=== PATIENT | female | born 1950 | race Caucasian/White ===

== ENCOUNTER 2018-01-30 11:25 | Emergency (ER) | payer BC ==
[~2018-01-30] VITALS: Ht 167.6 cm; Wt 128.5 kg
[~2018-01-30 11:25] MED LIST: BROM0.07 OPR; CHOL100010 PO; HYDR25TA4 PO; INSDGIPEN SC; MULT-506 PO; NVLGI SC; OMEG10007 PO; PRED1SUS3 OPR; RAMI10CA PO
[2018-01-30 11:31] VITALS: TEMP 36.7; Ht 167.6 cm; Wt 128.5 kg
[2018-01-30] MEDS ORDERED: ASPIRIN 81 MG CHEW PO STA (11:45)
[2018-01-30] MEDS ORDERED: NITROGLYCERIN 2% OINTMENT 30GM TUBE EXT ONE (11:45)
[2018-01-30 11:55] VITALS: O2SAT 96
[2018-01-30 12:13] LABS: HEMATOCRIT 43.8 % (37-47); HEMOGLOBIN 15.3 g/dL (12.0-16.0); MEAN CELL VOLUME 87.6 fL (80-100); MEAN CORPUSCULAR HEMOGLOBIN 30.6 pg (25-34); MEAN CORPUSCULAR HGB CONC 34.9 g/dl (32-36); MEAN PLATELET VOLUME 10.5 fL (7.4-10.4); PLATELET COUNT 153 K/uL (130-400); RED CELL DISTRIBUTION WIDTH CV 13.6 % (11.5-14.5); RED CELL DISTRIBUTION WIDTH SD 43.7 fL (36.4-46.3); WHITE BLOOD COUNT 8.34 K/uL (4.8-10.8)
--- NOTE | 2018-01-30 12:15 | DIAGNOSTIC IMAGING REPORT ---
CHEST ONE VIEW PORTABLE CLINICAL HISTORY: CHEST PAIN dyspnea COMPARISON STUDY: No previous studies for comparison. FINDINGS: The bones soft tissues and hemidiaphragms are normal. The cardiomediastinal silhouette is normal. The lungs are clear. The pulmonary vasculature is normal. IMPRESSION: Negative chest. The above report was generated using voice recognition software. It may contain grammatical, syntax or spelling errors. Electronically signed by: Bridger Moulton M.D. 01/30/2018 12:13 PM Dictated Date/Time: 01/30/2018 12:13 PM
[2018-01-30] MEDS ORDERED: NVLGIPEN SC (12:20)
[2018-01-30] MEDS ORDERED: ROSU5TAB PO (12:20)
[2018-01-30] MEDS ORDERED: NVLGI/PEN SC (12:20)
[2018-01-30] MEDS ORDERED: INSU100I23 SC (12:20)
[2018-01-30] MEDS ORDERED: ASPI81TA28 PO (12:21)
[2018-01-30 12:22] LABS: PTT PATIENT 25.3 SECONDS (21.0-31.0)
--- NOTE | 2018-01-30 12:25 | EMERGENCY ROOM VISIT NOTE ---
History Report prepared by Kelly: Lakhwinder Anderson Under the Supervision of: Dr. Hardy Garcia M.D. First contact with patient: 11:38 Chief Complaint: CHEST PAIN Stated Complaint: CHEST PAIN,LEFT ARM NUMBNESS History of Present Illness The patient is a 67 year old female who presents to the Emergency Room with complaints of constant sharp chest pain beginning this morning. She currently rates her discomfort a 4/10 in severity. The patient states her symptoms radiate up her neck and into her left jaw and left arm. She reports it feels like her left arm is numb. The patient notes she is also nauseous, lightheaded, and dizzy. She states she has a history of diabetes. She notes her symptoms started two weeks ago when her chest felt like it was fluttering. The patient states, 2 weeks ago, the fluttering lasted for about 20-30 minutes. She reports she went to sleep and developed a strange feeling in her arms the next morning. The patient notes she was evaluated by a decontamination technician 5 months ago and had a stress test completed. She states she takes medication for high cholesterol and high blood pressure. The patient reports she smokes a pack of cigarettes a day. She denies issues with her heart, feeling these symptoms before, worsening discomfort with exertion, shortness of breath, sweating, recent illness, long trips by car, plane, or train, and a history or family history of blood clots in the legs or lungs. Source of History: patient Onset: this morning Position: chest Symptom Intensity: 4/10 Quality: sharp Timing: constant Associated Symptoms: + neck pain, + nausea, + numbness (left arm), No SOB Note: Associated symptoms: left jaw pain, lightheaded, dizzy, low blood sugar Denies: sweating Review of Systems See HPI for pertinent positives & negatives. A total of 10 systems reviewed and were otherwise negative. Past Medical & Surgical Medical Problems: (1) Diabetes (2) High cholesterol (3) HTN (hypertension) Family History Patient reports no known family medical history. Pt denies family history of blood clots in the legs or lungs. Social History Smoking Status: Current Every Day Smoker Marital Status: Housing Status: lives with significant other Occupation Status: unemployed Current/Historical Medications Scheduled Aspirin (Aspirin Ec), 81 MG PO DAILY Cholecalciferol (Vitamin D), 2,000 UNITS PO QAM Fish Oil ([place]-3), 1 CAP PO QAM Hydrochlorothiazide (Hctz), 25 MG PO QAM Insulin Aspart (Novolog Flexpen), 10 UNITS SC QAM Insulin Aspart (Novolog Flexpen), 16 UNITS SC QPM Insulin Glargine (Basaglar Kwikpen), 60 UNITS SC QPM Multivitamin (Multivitamin), 1 TAB PO QAM Ramipril (Ramipril), 10 MG PO HS Rosuvastatin Calcium (Crestor), 5 MG PO 2XWK Allergies Coded Allergies: Codeine (Verified Allergy, Unknown, RASH, 09/15/16) Metformin (Verified Allergy, Unknown, JAUNDICE, 09/15/16) Nickel (Verified Allergy, Unknown, RASH, 09/15/16) Adhesives (Verified Adverse Reaction, Unknown, SKIN REDNESS, 09/15/16) Physical Exam Vital Signs Date Time Temp Pulse Resp B/P (MAP) Pulse Ox O2 Delivery O2 Flow Rate FiO2 01/30/18 15:31 68 18 143/56 98 Room Air 01/30/18 14:43 70 18 150/79 95 Room Air 01/30/18 13:43 75 14 172/59 98 Room Air 01/30/18 13:04 73 14 172/59 98 Room Air 01/30/18 12:32 75 14 181/79 99 Room Air 01/30/18 12:01 76 01/30/18 11:59 96 Room Air 01/30/18 11:55 96 Room Air 01/30/18 11:53 78 16 172/55 96 Room Air 01/30/18 11:31 36.7 87 20 171/85 95 Room Air Physical Exam GENERAL: Patient is in no acute distress. HEENT: No acute trauma, normocephalic atraumatic, mucous membranes moist, no nasal congestion, no scleral icterus. NECK: No stridor, no adenopathy, no meningismus, trachea is midline. LUNGS: Clear to auscultation bilaterally, no wheeze, no rhonchi, breath sounds equal. HEART: Without murmurs gallops or rubs, regular rate and rhythm. CHEST: Tenderness to palpation to the left anterior chest wall. ABDOMEN: Soft, nontender, bowel sounds positive, no hernias, no peritonitis. EXTREMITIES: No cyanosis. Moderate bilateral pedal edema, full range of motion of all the joints without pain or difficulty, no signs for acute trauma. NEUROLOGIC: Oriented x 3, no acute motor or sensory deficits, no focal weakness. No pronator drift or cerebellar dysfunction. No facial droop or speech slur. SKIN: No rash, no jaundice, no diaphoresis. Medical Decision & Procedures ER Provider Diagnostic Interpretation: Radiology results as stated below per my review and radiologist interpretation: CHEST ONE VIEW PORTABLE CLINICAL HISTORY: CHEST PAIN dyspnea COMPARISON STUDY: No previous studies for comparison. FINDINGS: The bones soft tissues and hemidiaphragms are normal. The cardiomediastinal silhouette is normal. The lungs are clear. The pulmonary vasculature is normal. IMPRESSION: Negative chest. The above report was generated using voice recognition software. It may contain grammatical, syntax or spelling errors. Electronically signed by: Bridger Moulton M.D. 01/30/2018 12:13 PM Dictated Date/Time: 01/30/2018 12:13 PM (CHEST FOR PE) ANGIO WITH CT DOSE: 650.11 mGy.cm HISTORY: Chest pain dyspnea TECHNIQUE: Multiaxial CT images of the chest were performed following the intravenous administration of contrast to evaluate the pulmonary arteries. Maximal intensity projection images were also obtained. A dose lowering technique was utilized adhering to the principles of ALARA. COMPARISON STUDY: None. FINDINGS: There is a normal caliber thoracic aorta with no evidence for dissection. There is no evidence for pulmonary embolus. No pleural effusions. No pneumothorax. The liver and spleen are unremarkable. No mediastinal or hilar lymphadenopathy. The central airways are patent. The lungs are clear. IMPRESSION: No evidence for pulmonary embolus. The above report was generated using voice recognition software. It may contain grammatical, syntax or spelling errors. Electronically signed by: Bridger Moulton M.D. 01/30/2018 2:39 PM Dictated Date/Time: 01/30/2018 2:37 PM Laboratory Results 01/30/18 11:58 01/30/18 11:58 Test 01/30/18 11:58 01/30/18 12:17 Red Blood Count 5.00 M/uL (4.2-5.4) Mean Corpuscular Volume 87.6 fL (80-100) Mean Corpuscular Hemoglobin 30.6 pg (25-34) Mean Corpuscular Hemoglobin Concent 34.9 g/dl (32-36) RDW Standard Deviation 43.7 fL (36.4-46.3) RDW Coefficient of Variation 13.6 % (11.5-14.5) Mean Platelet Volume 10.5 fL (7.4-10.4) Prothrombin Time 10.2 SECONDS (9.0-12.0) Prothromb Time International Ratio 1.0 (0.9-1.1) Activated Partial Thromboplast Time 25.3 SECONDS (21.0-31.0) Partial Thromboplastin Ratio 1.0 Anion Gap 0.0 mmol/L (3-11) Est Creatinine Clear Calc Drug Dose 87.3 ml/min Estimated GFR () 80.5 Estimated GFR (Non- 69.4 BUN/Creatinine Ratio 28.5 (10-20) Calcium Level 8.9 mg/dl (8.5-10.1) Magnesium Level 2.1 mg/dl (1.8-2.4) Total Bilirubin 0.4 mg/dl (0.2-1) Aspartate Amino Transf (AST/SGOT) 21 U/L (15-37) Alanine Aminotransferase (ALT/SGPT) 27 U/L (12-78) Alkaline Phosphatase 66 U/L (45-117) Troponin I < 0.015 ng/ml (0-0.045) Total Protein 7.4 gm/dl (6.4-8.2) Albumin 4.0 gm/dl (3.4-5.0) Globulin 3.4 gm/dl (2.5-4.0) Albumin/Globulin Ratio 1.2 (0.9-2) Thyroid Stimulating Hormone (TSH) 1.440 uIu/ml (0.300-4.500) Chemistry Specimen Hemolysis Bedside D-Dimer > 450 ng/mlFEU (0-450) Laboratory results reviewed by me. Medications Administered Medications (Trade) Dose Ordered Sig/Álvaro Route Start Time Stop Time Status Last Admin Dose Admin Nitroglycerin (Nitroglycerin 2% Oint) 1 inch NOW ONCE EXT 01/30/18 11:45 01/30/18 11:48 DC 01/30/18 12:08 1 INCH Aspirin (Aspirin Chew) 324 mg NOW STAT PO 01/30/18 11:45 01/30/18 11:48 DC 01/30/18 11:56 324 MG ECG Per My Interpretation Indication: chest pain Rate (beats per minute): 82 Rhythm: normal sinus Findings: no ectopy, other (No ST elevation. No PVC.) ED Course 1141: The patient was evaluated in room C04. A complete history and physical exam was performed. 1145: Ordered Aspirin 324mg PO, Nitroglycerin 1 in EXT 1248: I reevaluated the patient and discussed her current exam findings. She is still having discomfort. 1351: I reevaluated the patient and discussed her need for a CT scan. 1445: I reevaluated the patient and updated her of her new test results. She notes there still has not been relief with the nitroglycerin patch. 1447: Paged the patient's decontamination technician, Dr. Fernández. 1505: Dr. Fernández is unreachable. The [facility] Hospitalist has been paged. 1515: I updated the patient on the status of the consult. I updated them about her current test results. 1522: I discussed the patient's case with Dr. Au, [facility] Aws Developer. He states the patient should follow-up as an outpatient. 1524: Reevaluated the patient. Discussed results and discharge instructions: she verbalized understanding and agreement. The patient is ready for discharge. Medical Decision The patient is a 67 year old female who presents to the ED with complaints of chest pain. Differential diagnoses considered include ME, PE, aortic dissection , musculoskeletal pain, stroke, electrolyte imbalance, anemia, pneumothorax, heart failure. There is no leukocytosis or concerning anemia. No significant electrolyte abnormality, kidney failure or hepatitis. No coagulopathy. Chest film does not show mediastinal widening, pneumonia or pneumothorax. EKG shows a sinus rhythm, no acute ischemia. Cardiac enzyme testing 1 is not consistent with acute cardiac injury. D-dimer was elevated. Chest CT does not show any evidence for PE or for aortic dissection. No pneumonia. Patient was given oral aspirin and Nitropaste. The nitroglycerin did not help her pain. She remains with some left-sided chest pain and shoulder pain which seems reproducible. I spoke with [facility] cardiology, outpatient follow-up was suggested. The patient will see her family doctor or decontamination technician this week. She can use some Tylenol for pain. She will keep on her other medications as before. If she has any exertional symptoms or worsening symptoms, she can return for reassessment. Medication Reconcilliation Current Medication List: was personally reviewed by me Blood Pressure Screening Patient's blood pressure: Elevated blood pressure Blood pressure disposition: Referred to PCP Consults Time Called: 1505 Consulting Physician: Frank Funes Aws Developer Returned Call: 1522 I discussed the patient's case with Frank Funes Aws Developer. He states the patient should follow-up as an outpatient. Impression Primary Impression: Left sided chest pain Scribe Attestation The scribe's documentation has been prepared under my direction and personally reviewed by me in its entirety. I confirm that the note above accurately reflects all work, treatment, procedures, and medical decision making performed by me. Departure Information Dispostion Home / Self-Care Referrals Jona Martinez M.D. (PCP) Forms Call Back Authorization, HOME CARE DOCUMENTATION FORM, IMPORTANT VISIT INFORMATION Patient Instructions My [facility] [place] Additional Instructions heat to the chest wall may help tylenol for pain return for any exertional symptoms--pain with exertion or increasing shortness of breath see cardiology or fam md this week for a follow up return if worsening heart and lung testing today was all ok
[2018-01-30 13:00] LABS: ALT/SGPT 27 U/L (12-78); AST/SGOT 21 U/L (15-37); BLOOD UREA NITROGEN 25 mg/dl (7-18); CALCIUM 8.9 mg/dl (8.5-10.1); CARBON DIOXIDE 29 mmol/L (21-32); CREATININE 0.87 mg/dl (0.60-1.20); GLUCOSE 160 mg/dl (70-99); POTASSIUM 4.5 mmol/L (3.5-5.1); SODIUM 138 mmol/L (136-145)
[2018-01-30 13:25] LABS: ALKALINE PHOSPHATASE 66 U/L (45-117); TOTAL PROTEIN 7.4 gm/dl (6.4-8.2)
[2018-01-30] MEDS ORDERED: OPTIRAY 320 IV PRN (14:30)
--- NOTE | 2018-01-30 14:40 | DIAGNOSTIC IMAGING REPORT ---
(CHEST FOR PE) ANGIO WITH CT DOSE: 650.11 mGy.cm HISTORY: Chest pain dyspnea TECHNIQUE: Multiaxial CT images of the chest were performed following the intravenous administration of contrast to evaluate the pulmonary arteries. Maximal intensity projection images were also obtained. A dose lowering technique was utilized adhering to the principles of ALARA. COMPARISON STUDY: None. FINDINGS: There is a normal caliber thoracic aorta with no evidence for dissection. There is no evidence for pulmonary embolus. No pleural effusions. No pneumothorax. The liver and spleen are unremarkable. No mediastinal or hilar lymphadenopathy. The central airways are patent. The lungs are clear. IMPRESSION: No evidence for pulmonary embolus. The above report was generated using voice recognition software. It may contain grammatical, syntax or spelling errors. Electronically signed by: Bridger Moulton M.D. 01/30/2018 2:39 PM Dictated Date/Time: 01/30/2018 2:37 PM
[2018-01-30 15:31] VITALS: BP 143/56; PULSE 68; O2SAT 98
== END 2018-01-30 15:33 | disposition home or self-care (01) ==
LOC: C.EDB 11:27 → C.EDC 15:33
DX: R07.9 Chest pain, unspecified (principal); E11.9 Type 2 diabetes mellitus without complications; F17.210 Nicotine dependence, cigarettes, uncomplicated; I10 Essential (primary) hypertension; E78.00 Pure hypercholesterolemia, unspecified; Z79.4 Long term (current) use of insulin; Z79.82 Long term (current) use of aspirin; Z79.899 Other long term (current) drug therapy; Z88.5 Allergy status to narcotic agent; Z88.8 Allergy status to other drugs, medicaments and biological substances; Z91.09 Other allergy status, other than to drugs and biological substances

== ENCOUNTER 2019-01-21 16:44 | Inpatient (IN) ==
[2019-01-21] MEDS ORDERED: VANCOMYCIN HCL 2,750 MG in SODIUM CHLORIDE 0.9% 500 ML IV ONE (18:13)
[2019-01-21] MEDS ORDERED: PIPERACILLIN/TAZOBACTAM 4.5 GM/120 ML BAG IV ONE (18:13)
[2019-01-21] MEDS ORDERED: PIPERACILL/TAZOBAC CONSULT ACTIVE PRN (18:13)
[2019-01-21] MEDS ORDERED: VANCOMYCIN CONSULT ACTIVE PRN (18:13)
--- NOTE | 2019-01-21 18:42 | XRay Report ---
XR chest 1V portable CLINICAL HISTORY: Sepsis COMPARISON STUDY: 01/30/2018 FINDINGS: The heart is the upper limits of normal in size. There is no failure. There is no focal pul monary consolidation. There are no pleural effusions. Slight prominence the basilar markings is felt to be secondary to a prominent fat pad and minor atelectatic change[ IMPRESSION: No active disease in the chest. Electronically signed by: Fabrizio Kaufman M.D. 01/21/2019 6:40 PM
--- NOTE | 2019-01-21 18:44 | XRay Report ---
XR foot RT min 3V routine CLINICAL HISTORY: Suspected osteomyelitis. Discoloration of the second and third toes. COMPARISON: None. DISCUSSION: No fractures are visualized. The bones are osteopenic. There are prominent calcaneal spur s. There are degenerative changes most pronounced the level the first metatarsal phalangeal joint. Th ere is no conventional radiographic evidence of osteomyelitis. IMPRESSION: 1. No acute fractures identified 2. No conventional radiographic evidence of acute osteomyelitis Electronically signed by: Fabrizio Kaufman M.D. 01/21/2019 6:43 PM
[2019-01-21 19:26] LABS: Basophils # (auto) 0.03 K/uL (0-0.2); Basophils % (auto) 0.4 %; Eosinophils # (auto) 0.12 K/uL (0-0.5); Eosinophils % (auto) 1.5 %; Hematocrit (blood only) 43.9 % (37-47); Hemoglobin 15.6 g/dL (12.0-16.0); Immature Granulocytes # (auto) 0.02 K/uL (0.00-0.02); Immature Granulocytes % (auto) 0.2 %; Lymphocytes # (auto) 2.81 K/uL (1.2-3.4); Lymphocytes % (auto) 34.1 %; Mean Corpuscular Hgb Conc 35.5 g/dL (32-36); Mean Corpuscular Volume 87.5 fL (80-100); Monocytes # (auto) 0.81 K/uL (0.11-0.59); Monocytes % (auto) 9.8 %; Neutrophils # (auto) 4.44 K/uL (1.4-6.5); Platelet Count 148 K/uL (130-400); RDW Coefficient of Variation 13.4 % (11.5-14.5); RDW Standard Deviation 42.8 fL (36.4-46.3); Red Blood Count 5.02 M/uL (4.2-5.4); White Blood Count 8.23 K/uL (4.8-10.8)
[2019-01-21 19:44] LABS: BUN Creatinine Ratio 25.7 (10-20); Calcium 9.4 mg/dl (8.5-10.1); Creatinine Clr Calc Pharmacy 92.9 ml/min; Est GFR (African American) 87.1; Est GFR (Non-African American) 75.2; Potassium 3.9 mmol/L (3.5-5.1)
[2019-01-21 19:46] LABS: Partial Thromboplastin Time 26.2 Seconds (21.0-31.0); Prothrombin Time 10.3 Seconds (9.0-12.0)
[2019-01-21 19:47] LABS: Albumin Globulin Ratio 1.2 (0.9-2); Bilirubin,Total 0.7 mg/dl (0.2-1); Globulin 3.4 gm/dl (2.5-4.0); Total Protein 7.4 gm/dl (6.4-8.2)
[2019-01-21 20:39] LABS: Magnesium 2.2 mg/dl (1.8-2.4)
[2019-01-21] MEDS ORDERED: LISINOPRIL 5 MG TAB PO STA (21:04)
--- NOTE | 2019-01-21 22:16 | History & Physical Report ---
Date of Service January 21, 2019 Assessment & Plan (1) Cellulitis of toe of right foot: This is a 68-year-old female with a PMH of DM II, tobacco use disorder, HTN, HLD and other medical problems listed below who presents with toe discoloration and pain starting yesterday and was found to have toe cellulitis with concern for developing osteomyelitis. 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 Gomez. Please see addendum for further plan details. History of Present Illness Chief Complaint: Right toe pain Primary Care Provider: Jona Martinez MD This is a 68-year-old female with a PMH of DM II, tobacco use disorder, HTN, HLD and other medical problems listed below who presents with R toe discoloration and pain starting yesterday. Patient spent yesterday cleaning her home and noticed some purple discoloration at the top portion of her toe right 2nd toe. By the end of the day, purple color had spread to the base of her toe and she noted blisters forming on the top and bottom of the toe. Ambulation is painful. Went to acute care in [place] today and had x-ray performed. Was called later after radiologist read x-ray as possible developing osteomyelitis. Was directed to come to ED for further evaluation and antibiotic treatment. Patient denies any history of foot wounds. No fever, chills, lightheadedness, headache, chest pain, shortness of breath, nausea, vomiting, abdominal pain, dysuria, diarrhea or constipation. Has chronic lymphedema. Follows with endocrinology closely for diabetes with most recent A1c of 7.2 last week. Current tobacco user, 1 ppd x 45 years. Allergies Allergy/AdvReac Type Severity Reaction Status Date / Time metformin Allergy Severe JAUNDICE Verified 01/21/19 19:13 codeine Allergy Mild RASH Verified 01/21/19 19:13 nickel Allergy Mild RASH Verified 01/21/19 19:13 adhesive AdvReac Mild SKIN Verified 01/21/19 19:13 REDNESS Home Medications Home Medications Medication Instructions Recorded Confirmed Type aspirin [Aspir-81] 81 mg PO DAILY 01/21/19 01/21/19 History cholecalciferol (vitamin D3) 2,000 unit PO MOWEFR 01/21/19 01/21/19 History [Vitamin D3] hydrochlorothiazide 12.5 mg PO DAILY 01/21/19 01/21/19 History insulin aspart U-100 [Novolog 12 unit SUBCUT BID 01/21/19 01/21/19 History U-100 Insulin aspart] insulin aspart U-100 [Novolog 16 unit SUBCUT QDD 01/21/19 01/21/19 History U-100 Insulin aspart] insulin glargine [Basaglar KwikPen 60 unit SUBCUT QDD 01/21/19 01/21/19 History U-100 Insulin] multivitamin 1 tab PO DAILY 01/21/19 01/21/19 History omega 4-aom-jiv-fish oil [Fish Oil] 1 cap PO DAILY 01/21/19 01/21/19 History ramipril 10 mg PO BID 01/21/19 01/21/19 History rosuvastatin [Crestor] 5 mg PO MOTH 01/21/19 01/21/19 History Past Med/Surg History Surgical History History of appendectomy (Resolved) History of tooth extraction (Resolved) Social History Preferred Language: Polish Communication Ability: Effective 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 Physical Exam Physical Exam: General Appearance: WD/WN, no apparent distress, obese Head: normocephalic, atraumatic Eyes: normal inspection, PERRL, EOMI ENT: hearing grossly normal, pharynx normal (moist mucous membranes) Neck: supple, no JVD, no adenopathy Respiratory/Chest: lungs clear to auscultation. No wheezes, rales or rhonci. No respiratory distress or accessory muscle use Cardiovascular: regular rate, rhythm, no murmur, normal peripheral pulses Abdomen/GI: normal bowel sounds, soft, non-tender to palpation Extremities/Musculoskelatal: Right 2nd phalynx with purple discoloration and blistering on dorsal and plantar surfaces. Warm to touch, no drainage. PT/DP pulses 2+. Non-pitting edema bilaterally to knees. Neurologic/Psych: alert, normal mood/affect, oriented x 3 Skin: normal color, warm/dry Results & Data Vital Signs (Past 12 Hours) Vital Signs Temp Pulse Resp BP Pulse Ox 01/21/19 16:50 36.5 C 88 18 206/87 H 97 Laboratory Results Short CBC 01/21/19 Range/Units 19:12 WBC 8.23 (4.8-10.8) K/uL Hgb 15.6 (12.0-16.0) g/dL Hct 43.9 (37-47) % Plt Count 148 (130-400) K/uL BMP 01/21/19 19:12 Sodium 136 Potassium 3.9 Chloride 105 Carbon Dioxide 29 BUN 21 H Creatinine 0.81 Glucose 167 H Calcium 9.4 Liver Function 01/21/19 Range/Units 19:12 Total Bilirubin 0.7 (0.2-1) mg/dl AST 16 (15-37) U/L ALT 27 (12-78) U/L Alkaline Phosphatase 54 (45-117) U/L Albumin 4.0 (3.4-5.0) gm/dl Diagnostic Findings CXR: IMPRESSION: No active disease in the chest. Foot XR: IMPRESSION: 1. No acute fractures identified 2. No conventional radiographic evidence of acute osteomyelitis Supervising Physician Co-Signing Physician Notes IM ATTENDING : Patient seen and examined. History obtained from patient and records. Preceding documentation by Ms. Gwendolyn Maloney PA-C reviewed. In addition, official report of outpatient plain right foot x-ray read as follows : Right great toe digital phalangeal tuft osteomyelitis Calcaneal enthesophytes FINAL ASSESSMENT AND PLAN as follows : Right second toe cellulitis Sudden onset no sepsis Rule out PAD given claudication symptoms and smoking history Possible focal osteomyelitis on outpatient R foot x-ray Right great toe symptomatically and clinically well. Hypertension, elevated secondary to pain, missed home meds DM 2, insulin requiring, reasonable control as of recent outpatient globin A1c of 7.06 January 2019 Ongoing tobacco abuse GMF CS, Doxycycline for now Local measures for toe cellulitis MRI foot RE abnormal right foot x-ray ABIs RE claudication rule out PAD Analgesia, facilitate patient's AGUILA inhibitor, may need titration Further management pending work-up results Basal insulin, ISS BG goal 140-180, carb count coverage Nicotine patch PRN. DVT prophylaxis. Lovenox subcu Full code
[2019-01-21] MEDS ORDERED: CARBOHYDRATES FOR HYPOGLYCEMIA PO PRN (23:02)
[2019-01-21] MEDS ORDERED: ACETAMINOPHEN 325 MG TAB PO PRN (23:02)
[2019-01-21] MEDS ORDERED: DEXTROSE 50% 50 ML SYRINGE IV PRN (23:02)
[2019-01-21] MEDS ORDERED: GLUCOSE 40% GEL 15 GM TUBE PO PRN (23:02)
[2019-01-21] MEDS ORDERED: GLUCOSE 10 TABS/TUBE PO PRN (23:02)
[2019-01-21] MEDS ORDERED: GLUCAGON FOR INJ 1 MG VIAL SQ PRN (23:02)
[2019-01-21] MEDS ORDERED: PROMETHAZINE HCL 12.5 MG in SODIUM CHLORIDE 0.9% 50 ML IV PRN (23:03)
[2019-01-21] MEDS ORDERED: TRAMADOL HCL 50 MG TABLET PO PRN (23:03)
[2019-01-21] MEDS ORDERED: LISINOPRIL 10 MG TAB PO STA (23:06)
[2019-01-21] MEDS ORDERED: NSS + 20MEQ KCL 20 MEQ/1,000 ML BAG IV ONE (23:59)
[2019-01-22] MEDS ORDERED: DOXYCYCLINE HYCLATE 100 MG in DEXTROSE 5% 100 ML IV STA (00:22)
--- NOTE | 2019-01-22 00:27 | Emergency Department Note ---
Entered by Alyssa Shields acting as a scribe for Jimmy Ordoñez MD History of Present Illness General Chief complaint: Toe Injury/Pain Stated complaint: RT TOE BONE INFECTED Time Seen by Provider: 01/21/19 18:06 Source: patient History of Present Illness Onset (ago): day(s) 1 Location: foot (right foot, second toe) Pain Consistency: + constant Maximum Pain Intensity: 3 Quality: + other (blackening discoloration) Associated symptoms: + denies other symptoms (abdominal pain, and urination problems) and + other (bilateral lower extremity swelling); no fever/chills and no nausea/vomiting Treatments prior to arrival: other (Tylenol) The patient is a 68 year-old white F w/ PMHx HLD, HTN, and DM who presents to the ED w/ CC of constant second toe pain on the right foot beginning 1 day ago. She notices that there is blackening discoloration around the toe. She adds that she is experiencing slight neuropathy but states that she can still feel her toe. She notes that she was first seen at [facility] but was referred to the ED. She states that her toe nail was removed last May but recently grew back in and got infected. She states that she is currently experiencing bilateral lower extremity swelling, but notes that this problem is chronic. She denies currently experiencing any fever, chills, nausea, vomiting, abdominal pain, and urination problems. She notes that she took 2 Tylenols last night to no relief. She states that she smokes tobacco products. Home Medications Home Medications Medication Instructions Recorded Confirmed Type aspirin [Aspir-81] 81 mg PO DAILY 01/21/19 01/21/19 History cholecalciferol (vitamin D3) 2,000 unit PO MOWEFR 01/21/19 01/21/19 History [Vitamin D3] hydrochlorothiazide 12.5 mg PO DAILY 01/21/19 01/21/19 History insulin aspart U-100 [Novolog 12 unit SUBCUT BID 01/21/19 01/21/19 History U-100 Insulin aspart] insulin aspart U-100 [Novolog 16 unit SUBCUT QDD 01/21/19 01/21/19 History U-100 Insulin aspart] insulin glargine [Basaglar KwikPen 60 unit SUBCUT QDD 01/21/19 01/21/19 History U-100 Insulin] multivitamin 1 tab PO DAILY 01/21/19 01/21/19 History omega 4-mgm-dpe-fish oil [Fish Oil] 1 cap PO DAILY 01/21/19 01/21/19 History ramipril 10 mg PO BID 01/21/19 01/21/19 History rosuvastatin [Crestor] 5 mg PO MOTH 01/21/19 01/21/19 History Allergies Allergy/AdvReac Type Severity Reaction Status Date / Time metformin Allergy Severe JAUNDICE Verified 01/21/19 19:13 codeine Allergy Mild RASH Verified 01/21/19 19:13 nickel Allergy Mild RASH Verified 01/21/19 19:13 adhesive AdvReac Mild SKIN Verified 01/21/19 19:13 REDNESS Past Med/Surg History Medical History NAFLD (nonalcoholic fatty liver disease) (Chronic) Tobacco use disorder (Chronic) Diabetes mellitus, type II (Chronic) High cholesterol (Chronic) HTN (hypertension) (Chronic) Surgical History History of appendectomy (Resolved) History of tooth extraction (Resolved) Family History Other Diabetes Social History Preferred Language: [place] Current Living Situation: Spouse Feels Safe at Home: Yes Smoking Status: Current every day smoker packs per day: 1 Years Smoked: 45 Review of Systems See HPI for pertinent positives & negatives. and A total of 10 systems reviewed and were otherwise negative Physical Exam Vital Signs Vital Signs - 24 hr 01/21/19 16:50 01/21/19 23:47 Temperature 36.5 C Temperature Source Oral Sepsis Recent Fever Within 48 Hours No Sepsis New/Unexplained Change in Mental Status No Sepsis Action Taken by Nursing No Action Required Pulse Rate 88 Pulse Rate [Finger] 77 Respiratory Rate 18 20 Blood Pressure 206/87 H Blood Pressure [Right Arm] 101/78 Blood Pressure Mean 126 Blood Pressure Mean [Right Arm] 85 Pulse Oximetry 97 98 Oxygen Delivery Method Room Air Room Air GENERAL: Well appearing, well nourished, NAD, non-toxic, wearing glasses. EYE EXAM: Normal conjunctiva. PERRL, no anisocoria and EOM's grossly intact w/o pain. OROPHARYNX: No exudate, posterior pharynx is clear, no tonsillar/uvular deviation or swelling. NECK: Supple, no nuchal rigidity, no adenopathy, non-tender. no signs of meningismus. LUNGS: Clear to auscultation. Normal chest wall mechanics. HEART: NSR, no MRG. ABDOMEN: Abdomen soft, non-tender, normo-active bowel sounds, no masses, no rebound or guarding. BACK: No CVA TTP. SKIN: No rashes and no bruising. UPPER EXTREMITIES: Upper extremities are grossly normal. LOWER EXTREMITIES: No pitting edema. No calf pain. Right foot mild discoloration of 2nd toe, unruptured blistering to dorsal aspect of second digit, sensation intact, compartment soft. Mild discoloration to 3rd digit. Well perfused. NEURO EXAM: Cranial nerves II-XII grossly intact, normal speech, 5/5 strength throughout, moves all 4 extremities on command w/o issue. Course 1807: The patient was evaluated in room B11A, and a completed history and physical examination were performed. 1946: [facility] the [facility] will evaluate the patient for further management. Consultations Consultation #1: I reviewed the patient's case with Dr. Ismael Gomez [facility]. He will evaluate the patient for further management. Time: 19:47 Administered Medications Discontinued Medications Piperacillin Sod/Tazobactam Sod (Zosyn) 4.5 gm in 120 mls @ 240 mls/hr IV NOW ONE Stop: 01/21/19 18:42 Last Infusion: 01/21/19 20:31 Dose: 0 mls/hr Documented by: [id number] Admin: 01/21/19 19:38 Dose: 240 mls/hr Documented by: [id number] Vancomycin HCl 2,750 mg/ (Sodium Chloride) 555 mls @ 200 mls/hr IV NOW ONE Stop: 01/21/19 20:59 Last Infusion: 01/21/19 22:42 Dose: 0 mls/hr Documented by: [id number] Admin: 01/21/19 19:38 Dose: 200 mls/hr Documented by: [id number] Lisinopril (Zestril) 10 mg PO NOW STA Stop: 01/21/19 21:05 Last Admin: 01/21/19 22:17 Dose: 10 mg Documented by: [id number] Medical Decision Making Medical Records Attestation: I reviewed the patient's medical records. Home Medications Current Medication List: was personally reviewed by me Laboratory Data Attestation: I reviewed the patient's lab results. Result diagrams: 01/21/19 19:12 01/21/19 19:12 Lab Results 01/21/19 01/21/19 01/21/19 Range/Units 19:12 19:12 19:12 WBC 8.23 (4.8-10.8) K/uL RBC 5.02 (4.2-5.4) M/uL Hgb 15.6 (12.0-16.0) g/dL Hct 43.9 (37-47) % MCV 87.5 (80-100) fL MCH 31.1 (25-34) pg MCHC 35.5 (32-36) g/dL RDW Std Deviation 42.8 (36.4-46.3) fL RDW Coeff of Harpreet 13.4 (11.5-14.5) % Plt Count 148 (130-400) K/uL MPV 11.0 H (7.4-10.4) fL Immature Gran % (Auto) 0.2 % Neut % (Auto) 54.0 % Lymph % (Auto) 34.1 % [place] % (Auto) 9.8 % Eos % (Auto) 1.5 % Baso % (Auto) 0.4 % Immature Gran # (Auto) 0.02 (0.00-0.02) K/uL Neut # (Auto) 4.44 (1.4-6.5) K/uL Lymph # (Auto) 2.81 (1.2-3.4) K/uL [place] # (Auto) 0.81 H (0.11-0.59) K/uL Eos # (Auto) 0.12 (0-0.5) K/uL Baso # (Auto) 0.03 (0-0.2) K/uL PT 10.3 (9.0-12.0) Seconds INR 1.0 (0.9-1.1) APTT 26.2 (21.0-31.0) Seconds PTT Ratio 1.0 Sodium 136 (136-145) mmol/L Potassium 3.9 (3.5-5.1) mmol/L Chloride 105 (98-107) mmol/L Carbon Dioxide 29 (21-32) mmol/L Anion Gap 2.0 L (3-11) BUN 21 H (7-18) mg/dl Creatinine 0.81 (0.6-1.2) mg/dl Est Cr Clr Drug Dosing 92.9 ml/min Est GFR ( Amer) 87.1 Est GFR (Non-Af Amer) 75.2 BUN/Creatinine Ratio 25.7 H (10-20) Glucose 167 H (70-99) mg/dl Lactate (0.4-2.0) mmol/L Calcium 9.4 (8.5-10.1) mg/dl Magnesium 2.2 (1.8-2.4) mg/dl Total Bilirubin 0.7 (0.2-1) mg/dl AST 16 (15-37) U/L ALT 27 (12-78) U/L Alkaline Phosphatase 54 (45-117) U/L Total Protein 7.4 (6.4-8.2) gm/dl Albumin 4.0 (3.4-5.0) gm/dl Globulin 3.4 (2.5-4.0) gm/dl Albumin/Globulin Ratio 1.2 (0.9-2) Procalcitonin (0-0.5) ng/ml 01/21/19 01/21/19 Range/Units 19:12 19:12 WBC (4.8-10.8) K/uL RBC (4.2-5.4) M/uL Hgb (12.0-16.0) g/dL Hct (37-47) % MCV (80-100) fL MCH (25-34) pg MCHC (32-36) g/dL RDW Std Deviation (36.4-46.3) fL RDW Coeff of Harpreet (11.5-14.5) % Plt Count (130-400) K/uL MPV (7.4-10.4) fL Immature Gran % (Auto) % Neut % (Auto) % Lymph % (Auto) % [place] % (Auto) % Eos % (Auto) % Baso % (Auto) % Immature Gran # (Auto) (0.00-0.02) K/uL Neut # (Auto) (1.4-6.5) K/uL Lymph # (Auto) (1.2-3.4) K/uL [place] # (Auto) (0.11-0.59) K/uL Eos # (Auto) (0-0.5) K/uL Baso # (Auto) (0-0.2) K/uL PT (9.0-12.0) Seconds INR (0.9-1.1) APTT (21.0-31.0) Seconds PTT Ratio Sodium (136-145) mmol/L Potassium (3.5-5.1) mmol/L Chloride (98-107) mmol/L Carbon Dioxide (21-32) mmol/L Anion Gap (3-11) BUN (7-18) mg/dl Creatinine (0.6-1.2) mg/dl Est Cr Clr Drug Dosing ml/min Est GFR ( Amer) Est GFR (Non-Af Amer) BUN/Creatinine Ratio (10-20) Glucose (70-99) mg/dl Lactate 0.9 (0.4-2.0) mmol/L Calcium (8.5-10.1) mg/dl Magnesium (1.8-2.4) mg/dl Total Bilirubin (0.2-1) mg/dl AST (15-37) U/L ALT (12-78) U/L Alkaline Phosphatase (45-117) U/L Total Protein (6.4-8.2) gm/dl Albumin (3.4-5.0) gm/dl Globulin (2.5-4.0) gm/dl Albumin/Globulin Ratio (0.9-2) Procalcitonin < 0.05 (0-0.5) ng/ml Imaging Data Radiologist's Impression: Radiology results as stated below per my review and the radiologist's interpretation: XR chest 1V portable CLINICAL HISTORY: Sepsis COMPARISON STUDY: 01/30/2018 FINDINGS: The heart is the upper limits of normal in size. There is no failure. There is no focal pulmonary consolidation. There are no pleural effusions. Slight prominence the basilar markings is felt to be secondary to a prominent fat pad and minor atelectatic change. IMPRESSION: No active disease in the chest. Electronically signed by: Fabrizio Kaufman M.D. 01/21/2019 6:40 PM XR foot RT min 3V routine CLINICAL HISTORY: Suspected osteomyelitis. Discoloration of the second and third toes. COMPARISON: None. DISCUSSION: No fractures are visualized. The bones are osteopenic. There are prominent calcaneal spurs. There are degenerative changes most pronounced the level the first metatarsal phalangeal joint. There is no conventional r adiographic evidence of osteomyelitis. IMPRESSION: 1. No acute fractures identified 2. No conventional radiographic evidence of acute osteomyelitis Electronically signed by: Fabrizio Kaufman M.D. 01/21/2019 6:43 PM Blood Pressure Blood Pressure Findings: Elevated blood pressure Blood Pressure Disposition: further management by hospitalist TIFFANIE Narrative The patient is a 68 year-old white F w/ PMHx HLD, HTN, and DM who presents to the ED w/ CC of constant second toe pain on the right foot beginning 1 day ago. Differential diagnosis includes: cellulitis, abscess, MRSA infection, DVT, necrotizing fasciitis, dermatitis, drug eruption, as well as others were enter tained. Patient was seen and evaluated the bedside. The patient was referred from [facility] due to concern of possible infectious osteomyelitis of her toe. The patient is noted some skin discoloration of the last 2 days over the second right phalanx. It does extend to approximately the metatarsophalangeal joint. The patient has pain only over the lateral aspect of the second toe. Unruptured blistering noted. Patient did a blood work completed along with empiric antibiotics and repeat x-rays as the patient did not come with any x-rays to be uploaded. Patient denies any trauma. The patient's blood work is fairly unremarkable. Given the patient's blistering and associated additional high risk features I believe she would benefit from staying. Also of note to the patient's x-rays were noted with the read stating that it was over right first great toe which would not be consistent with where the patient skin changes are located which are the second and third toes. Impression & Plan Cellulitis, Encounter for smoking cessation counseling Discharge Plan Visit Data *Final* Discharge Date/Time: 01/21/19 23:59 Chief Complaint: Toe Injury/Pain Stated Complaint: RT TOE BONE INFECTED ED Provider: Jimmy Ordoñez Discharge Problem: Cellulitis, Encounter for smoking cessation counseling Patient Disposition: Admitted As Inpatient Discharge Instructions Interventions: ED Discharge Assessment Last Done: 01/21/19 23:59 The scribe's documentation has been prepared under my direction and personally reviewed by me in its entirety. I confirm that the note above accurately reflects all work, treatment, procedures, and medical decision making performed by me.
[2019-01-22] MEDS: INSULIN ASPART 100 UNITS/ML 3 ML PEN SC SCH ×4 (00:52→17:18)
[2019-01-22] MEDS ORDERED: BENZONATATE 100 MG CAPSULE PO PRN (02:00)
[2019-01-22 02:22] LABS: Basophils # (auto) 0.04 K/uL (0-0.2); Basophils % (auto) 0.6 %; Eosinophils # (auto) 0.14 K/uL (0-0.5); Eosinophils % (auto) 2.1 %; Hematocrit (blood only) 39.7 % (37-47); Hemoglobin 13.8 g/dL (12.0-16.0); Immature Granulocytes # (auto) 0.03 K/uL (0.00-0.02); Immature Granulocytes % (auto) 0.5 %; Lymphocytes # (auto) 2.26 K/uL (1.2-3.4); Lymphocytes % (auto) 34.5 %; Mean Corpuscular Hgb Conc 34.8 g/dL (32-36); Mean Corpuscular Volume 88.8 fL (80-100); Mean Platelet Volume 10.8 fL (7.4-10.4); Monocytes # (auto) 0.69 K/uL (0.11-0.59); Monocytes % (auto) 10.5 %; Neutrophils % (auto) 51.8 %; Platelet Count 131 K/uL (130-400); RDW Coefficient of Variation 13.4 % (11.5-14.5); RDW Standard Deviation 43.7 fL (36.4-46.3); Red Blood Count 4.47 M/uL (4.2-5.4); White Blood Count 6.56 K/uL (4.8-10.8)
[2019-01-22 02:50] LABS: BUN Creatinine Ratio 25.1 (10-20); Calcium 8.5 mg/dl (8.5-10.1); Creatinine Clr Calc Pharmacy 91.9 ml/min; Est GFR (African American) 87.1; Est GFR (Non-African American) 75.2; Potassium 3.6 mmol/L (3.5-5.1)
--- NOTE | 2019-01-22 06:19 | Ultrasound Report ---
US ankle/brachial index comp CLINICAL HISTORY: claudication COMPARISON STUDY: No previous studies for comparison. FINDINGS: The right brachial artery systolic pressure was 171 mmHg. The left brachial artery systolic pressure was 180 mmHg. The right posterior tibial systolic pressure was 38 mmHg. The left posterior tibial systolic pressure was 158 mmHg. The right dorsalis pedis systolic pressure was 30 mmHg. The left dorsalis pedis systolic pressure was 146 mmHg. The right ankle-brachial index was 0.21. The left ankle-brachial index was 0.88. IMPRESSION: 1. Markedly reduced right ankle-brachial index of 0.21. 2. Mildly reduced left ankle brachial index of 0.88 Electronically signed by: Fabrizio Kaufman M.D. 01/22/2019 6:18 AM
[2019-01-22] MEDS ORDERED: MULTIVITAMIN TAB PO SCH (09:00)
[2019-01-22] MEDS ORDERED: DOXYCYCLINE HYCLATE 100 MG CAP PO SCH (09:00)
[2019-01-22] MEDS ORDERED: ASPIRIN 81 MG ECTAB PO SCH (09:00)
[2019-01-22] MEDS ORDERED: GADOBUTROL 65ML VIAL IV PRN (10:20)
--- NOTE | 2019-01-22 10:50 | Magnetic Resonance Report ---
MR foot RT wo/w con CLINICAL HISTORY: Right foot pain. Peripheral vascular disease. Discoloration of right second toe. Ne gative conventional radiographic study. COMPARISON STUDY: X-ray study dated 01/21/2019 FINDINGS: Imaging was performed in the axial, sagittal, and coronal planes. The patient was imaged be fore and after administration of 12.5 cc of intravenous Gadavist. There is pathologic marrow edema involving the tuft of the distal phalanx of the great toe. There is thickening of the overlying nailbed. The findings are suspicious for osteomyelitis. Clinical correlat ion in this regard is advocated, as no soft tissue abnormality was clinically reported. There are no findings to indicate osteomyelitis of the second toe as clinically queried there are no fluid collect ions to indicate an abscess. There is mild edema within the intrinsic muscles of the foot. IMPRESSION: 1. Pathologic T1 and T2 marrow edema involving the tuft of the distal phalanx the great toe with thic kening of the overlying nailbed. The findings are suspicious for acute osteomyelitis. 2. No evidence of soft tissue abscess Electronically signed by: Fabrizio Kaufman M.D. 01/22/2019 10:49 AM
[2019-01-22] MEDS ORDERED: NICOTINE 21 MG/24 HR TDSY TD SCH (13:45)
[2019-01-22] MEDS ORDERED: VANCOMYCIN CONSULT ACTIVE PRN (13:47)
[2019-01-22] MEDS ORDERED: PIPERACILL/TAZOBAC CONSULT ACTIVE PRN (13:48)
[2019-01-22] MEDS ORDERED: PIPERACILLIN/TAZOBACTAM 4.5 GM in DEXTROSE 5% 100 ML IV ONE (14:00)
[2019-01-22] MEDS ORDERED: NSS + 20MEQ KCL 20 MEQ/1,000 ML BAG IV SCH (14:00)
[2019-01-22] MEDS ORDERED: VANCOMYCIN HCL 2,500 MG in SODIUM CHLORIDE 0.9% 500 ML IV ONE (14:00)
[2019-01-22] MEDS ORDERED: PHARMACY GLYCEMIC MGMT CONSULT PRN (14:02)
[2019-01-22] MEDS ORDERED: Heparin IV Low Dose *NO* Bolus ONE (14:14)
--- NOTE | 2019-01-22 14:22 | Hospitalist Progress Note ---
Date of Service January 22, 2019 Assessment & Plan (1) Cellulitis of toe of right foot: This is a 68-year-old female with a PMH of DM II, tobacco use disorder, HTN, HLD and other medical problems listed below who presents with toe discoloration and pain starting yesterday and was found to have toe cellulitis with concern for developing osteomyelitis. -Afebrile, no leukocytosis -Blood cultures obtained: Pending -MRI right foot: There is pathologic marrow edema involving the tuft of the distal phalanx of the great toe. There is thickening of the overlying nailbed. The findings are suspicious for osteomyelitis. Clinical correlation in this regard is advocated, as no soft tissue abnormality was clinically reported. There are no findings to indicate osteomyelitis of the second toe as clinically queried there are no fluid collections to indicate an abscess. There is mild edema within the intrinsic muscles of the foot. IMPRESSION: 1. Pathologic T1 and T2 marrow edema involving the tuft of the distal phalanx the great toe with thickening of the overlying nailbed. The findings are childers spicious for acute osteomyelitis. 2. No evidence of soft tissue abscess Ankle-brachial index: IMPRESSION: 1. Markedly reduced right ankle-brachial index of 0.21. 2. Mildly reduced left ankle brachial index of 0.88 Start vancomycin and Zosyn IV Start NSS with potassium Discussed with vascular surgery Dr. Fajardo-not rat poisoner for emergencies this weekend Recommend transfer to tertiary care center for further evaluation management, recommend to initiate heparin drip Heparin drip low-dose no bolus ordered Discussed with patient's family and patient at length and in detail, they are requesting transfer to [facility] Called [facility], discussed with hospitalist vascular surgeon, they can accept the patient for transfer, Vascular surgeon also agrees with initiating heparin drip Discussed case, plan of care, with patient and her family at the bedside, at length and in detail All comfortable, agreeable, understanding the plan of care Discussed with patient and her daughter, no history of bleeding in the past They are agreeable to start heparin drip (2) Diabetes mellitus, type II: Follows with scale mechanic, recent A1c of 7.2 last week -Basal/bolus insulin per protocol -BSG AC HS (3) HTN (hypertension): BP elevated upon arrival at 206/87 -Did not take morning dose of ramipril, given to patient in the ED -Continue ramipril BID, HCTZ 12.5 mg daily - Improving (4) High cholesterol: Continue Crestor (5) Tobacco use disorder: History of 45 pack years, not interested in cessation -Nicotine patch ordered Disposition Transfer to [facility] for further evaluation management Subjective Follow-up for toe cellulitis Seen resting in bed, family at the bedside States she feels fine except for pain on the right foot, worse with walking short distances Also has mild discomfort on the second toe Denies fevers or chills Denies chest pain, shortness of breath, palpitations, dizziness No other symptoms Review of Systems Review of Systems: 10 systems reviewed negative except what was mentioned above Physical Exam Physical Exam: General- oriented x 3, not in distress, speaks in sentences with no effort or accessory muscle use Head- atraumatic Eyes- PERRL, EOMI, anicteric ENT- oropharynx clear Neck- supple, no JVD, no adenopathy, no thyromegaly; carotids +2/2, no bruits appreciated Lungs- clear to auscultation bilaterally, no rales/wheezes Heart- normal rate, regular rhythm; no murmur, no gallop, no rub appreciated Abdomen- normal bowel sounds, nondistended, soft, nontender, no masses or hepatosplenomegaly Extremities-mild lower leg edema, no cough tenderness/erythema/warmth next Positive the purple discoloration of the second toe of the right foot,moderate tenderness wiht light touch; right big toe no erythema, swelling, or warmth Poor dorsalis pedis pulses Neuro- alert, oriented x 3; CN 2-12 grossly intact; motor 5/5 bilaterally;sensation 100% on all extremities; no other gross focal neurologic deficits Skin- warm & dry Results & Data Laboratory Results Laboratory Results - last 24 hr 01/21/19 01/21/19 01/21/19 19:12 19:12 19:12 WBC 8.23 RBC 5.02 Hgb 15.6 Hct 43.9 MCV 87.5 MCH 31.1 MCHC 35.5 RDW Std Deviation 42.8 RDW Coeff of Harpreet 13.4 Plt Count 148 MPV 11.0 H Immature Gran % (Auto) 0.2 Neut % (Auto) 54.0 Lymph % (Auto) 34.1 [place] % (Auto) 9.8 Eos % (Auto) 1.5 Baso % (Auto) 0.4 Immature Gran # (Auto) 0.02 Neut # (Auto) 4.44 Lymph # (Auto) 2.81 [place] # (Auto) 0.81 H Eos # (Auto) 0.12 Baso # (Auto) 0.03 PT 10.3 INR 1.0 APTT 26.2 PTT Ratio 1.0 Sodium 136 Potassium 3.9 Chloride 105 Carbon Dioxide 29 Anion Gap 2.0 L BUN 21 H Creatinine 0.81 Est Cr Clr Drug Dosing 92.9 Est GFR ( Amer) 87.1 Est GFR (Non-Af Amer) 75.2 BUN/Creatinine Ratio 25.7 H Glucose 167 H POC Glucose Lactate Calcium 9.4 Magnesium 2.2 Total Bilirubin 0.7 AST 16 ALT 27 Alkaline Phosphatase 54 Total Protein 7.4 Albumin 4.0 Globulin 3.4 Albumin/Globulin Ratio 1.2 Procalcitonin Blood Type Antibody Screen 01/21/19 01/21/19 01/22/19 19:12 19:12 00:33 WBC RBC Hgb Hct MCV MCH MCHC RDW Std Deviation RDW Coeff of Harpreet Plt Count MPV Immature Gran % (Auto) Neut % (Auto) Lymph % (Auto) [place] % (Auto) Eos % (Auto) Baso % (Auto) Immature Gran # (Auto) Neut # (Auto) Lymph # (Auto) [place] # (Auto) Eos # (Auto) Baso # (Auto) PT INR APTT PTT Ratio Sodium Potassium Chloride Carbon Dioxide Anion Gap BUN Creatinine Est Cr Clr Drug Dosing Est GFR ( Amer) Est GFR (Non-Af Amer) BUN/Creatinine Ratio Glucose POC Glucose 253 H Lactate 0.9 Calcium Magnesium Total Bilirubin AST ALT Alkaline Phosphatase Total Protein Albumin Globulin Albumin/Globulin Ratio Procalcitonin < 0.05 Blood Type Antibody Screen 01/22/19 01/22/19 01/22/19 02:14 02:14 02:14 WBC 6.56 RBC 4.47 Hgb 13.8 Hct 39.7 MCV 88.8 MCH 30.9 MCHC 34.8 RDW Std Deviation 43.7 RDW Coeff of Harpreet 13.4 Plt Count 131 MPV 10.8 H Immature Gran % (Auto) 0.5 Neut % (Auto) 51.8 Lymph % (Auto) 34.5 [place] % (Auto) 10.5 Eos % (Auto) 2.1 Baso % (Auto) 0.6 Immature Gran # (Auto) 0.03 H Neut # (Auto) 3.40 Lymph # (Auto) 2.26 [place] # (Auto) 0.69 H Eos # (Auto) 0.14 Baso # (Auto) 0.04 PT INR APTT PTT Ratio Sodium 137 Potassium 3.6 Chloride 107 Carbon Dioxide 26 Anion Gap 4.0 BUN 20 H Creatinine 0.81 Est Cr Clr Drug Dosing 91.9 Est GFR ( Amer) 87.1 Est GFR (Non-Af Amer) 75.2 BUN/Creatinine Ratio 25.1 H Glucose 218 H POC Glucose Lactate Calcium 8.5 Magnesium Total Bilirubin AST ALT Alkaline Phosphatase Total Protein Albumin Globulin Albumin/Globulin Ratio Procalcitonin Blood Type B Positive Antibody Screen NEGATIVE 01/22/19 01/22/19 07:43 11:44 WBC RBC Hgb Hct MCV MCH MCHC RDW Std Deviation RDW Coeff of Harpreet Plt Count MPV Immature Gran % (Auto) Neut % (Auto) Lymph % (Auto) [place] % (Auto) Eos % (Auto) Baso % (Auto) Immature Gran # (Auto) Neut # (Auto) Lymph # (Auto) [place] # (Auto) Eos # (Auto) Baso # (Auto) PT INR APTT PTT Ratio Sodium Potassium Chloride Carbon Dioxide Anion Gap BUN Creatinine Est Cr Clr Drug Dosing Est GFR ( Amer) Est GFR (Non-Af Amer) BUN/Creatinine Ratio Glucose POC Glucose 205 H 203 H Lactate Calcium Magnesium Total Bilirubin AST ALT Alkaline Phosphatase Total Protein Albumin Globulin Albumin/Globulin Ratio Procalcitonin Blood Type Antibody Screen
[2019-01-22] MEDS ORDERED: LORazepam 0.5 MG TAB PO STA (14:24)
[2019-01-22] MEDS ORDERED: INSULIN HUMAN REGULAR PER UNIT 5 UNITS in SYRINGE 4.95 ML IV ONE (14:30)
--- NOTE | 2019-01-22 14:32 | Pharmacy Report ---
Glycemic Control Consultation - Date of Service January 22, 2019 - Scope Scope: Glycemic Pharmacist consulted for glycemic control and to write orders per [facility] inpatient glycemic control protocol - Objective Weight: 127 kg Accuchecks BSG (last 24hrs): 01/21/19 01/22/19 01/22/19 19:12 00:33 02:14 Glucose 167 H 218 H POC Glucose 253 H 01/22/19 01/22/19 07:43 11:44 Glucose POC Glucose 205 H 203 H Laboratory Data (last 24hrs): 01/21/19 01/22/19 19:12 02:14 Potassium 3.9 3.6 Carbon Dioxide 29 26 Anion Gap 2.0 L 4.0 Creatinine 0.81 0.81 Est Cr Clr Drug Dosing 92.9 91.9 - Recent Pertinent Medications Outpatient Anti-diabetic Regimen: * Basaglar 60 units SC QDD * Novolog SC AC - 12 units with breakfast and lunch, 16 units with dinner * A1c = 7.2 % last week (per H&P) The patient is currently receiving: * Basal insulin: None on 01/21 (last was home dose on 01/20) * Correctional Insulin: Novolog Correction per scale ACHS Goal Range: Low 140 mg/dL - High 180 mg/dL Correction Factor: 25 mg/dL/unit * Prandial insulin: Per carb ratio of 1 unit per 15 grams CHO consumed * Oral Agents: Risk Factors for Insulin Resistance: * Infection: cellulitis +/- osteomyelitis * Diet: T2DM - Assessment & Plan Assessment & Plan: ASSESSMENT: * 68 yo F with T2DM well controlled as an outpatient admitted with cellulitis +/- osteomyelitis * BSG's persistently in the 200's this admission, likely 2nd missed basal insulin yesterday (would have received 60 units with dinner at home) and also loose Novolog parameters for weight and for outpatient insulin total daily dose of 100 units/day * Will give higher Lantus dose for now to help overcome basal insufficiency. Additional Lantus tonight for BSG > 180 mg/dL. Total dose today may be as high as 150% of home dose * OK to give one-time IV bolus, based on a smaller amount of Novolog administered at lunch than will be subsequently ordered PLAN FOR INPATIENT GLYCEMIC CONTROL: * Insulin regular 5 units IV x1 now * Basal insulin * Lantus 70 units SQ x1 now then additional 20 units tonight if BSG >180 mg/dL * Bolus insulin * NovoLog per scale ACHS or Q6hrs while NPO * Goal Range: 120-160 mg/dL * Correction Factor: 15 mg/dL/unit * Nutritional / Prandial insulin per carb ratio of 1 unit per 5 grams CHO consumed * Please note that the plan above was derived based on current level of insulin resistance and hospital stress. These recommendations are appropriate for inpatient admission only. Plan of care upon discharge will need to be reassessed to avoid potential outpatient hypo/hyperglycemia. Thank you.
[2019-01-22] MEDS: INSULIN GLARGINE SOLOSTAR 100 UNITS/ML 3 ML PEN SQ ONE ×2 (14:50→15:14)
[2019-01-22] MEDS: Heparin IV Low Dose *NO* Bolus IV SCH ×2 (15:29→16:31)
[2019-01-22] MEDS ORDERED: Heparin Adult LOW DOSE Wt-Based Dextrose 5% 25,000 units/500 mL IV SCH (15:45)
--- NOTE | 2019-01-22 15:48 | Discharge Summary ---
Date of Service January 22, 2019 Admission HPI Per Admitting Provider This is a 68-year-old female with a PMH of DM II, tobacco use disorder, HTN, HLD and other medical problems listed below who presents with R toe discoloration and pain starting yesterday. Patient spent yesterday cleaning her home and noticed some purple discoloration at the top portion of her toe right 2nd toe. By the end of the day, purple color had spread to the base of her toe and she noted blisters forming on the top and bottom of the toe. Ambulation is painful. Went to acute care in [place] today and had x-ray performed. Was called later after radiologist read x-ray as possible developing osteomyelitis. Was directed to come to ED for further evaluation and antibiotic treatment. Patient denies any history of foot wounds. No fever, chills, lightheadedness, headache, chest pain, shortness of breath, nausea, vomiting, abdominal pain, dysuria, diarrhea or constipation. Has chronic lymphedema. Follows with endocrinology closely for diabetes with most recent A1c of 7.2 last week. Current tobacco user, 1 ppd x 45 years. Admission Exam Per Admitting Provider hysical Exam: General Appearance: WD/WN, no apparent distress, obese Head: normocephalic, atraumatic Eyes: normal inspection, PERRL, EOMI ENT: hearing grossly normal, pharynx normal (moist mucous membranes) Neck: supple, no JVD, no adenopathy Respiratory/Chest: lungs clear to auscultation. No wheezes, rales or rhonci. No respiratory distress or accessory muscle use Cardiovascular: regular rate, rhythm, no murmur, normal peripheral pulses Abdomen/GI: normal bowel sounds, soft, non-tender to palpation Extremities/Musculoskelatal: Right 2nd phalynx with purple discoloration and blistering on dorsal and plantar surfaces. Warm to touch, no drainage. PT/DP pulses 2+. Non-pitting edema bilaterally to knees. Neurologic/Psych: alert, normal mood/affect, oriented x 3 Skin: normal color, warm/dry Principal Diagnosis Severe peripheral arterial disease; cellulitis versus gangrene of the second right toe Osteomyelitis right great toe Discharge Exam Physical Exam: General- oriented x 3, not in distress, speaks in sentences with no effort or accessory muscle use Head- atraumatic Eyes- PERRL, EOMI, anicteric ENT- oropharynx clear Neck- supple, no JVD, no adenopathy, no thyromegaly; carotids +2/2, no bruits appreciated Lungs- clear to auscultation bilaterally, no rales/wheezes Heart- normal rate, regular rhythm; no murmur, no gallop, no rub appreciated Abdomen- normal bowel sounds, nondistended, soft, nontender, no masses or hepatosplenomegaly Extremities-mild lower leg edema, no cough tenderness/erythema/warmth next Positive the purple discoloration of the second toe of the right foot,moderate tenderness wiht light touch; right big toe no erythema, swelling, or warmth Poor dorsalis pedis pulses Neuro- alert, oriented x 3; CN 2-12 grossly intact; motor 5/5 bilaterally;sensation 100% on all extremities; no other gross focal neurologic deficits Skin- warm & dry Discharge Data Allergies Allergy/AdvReac Type Severity Reaction Status Date / Time metformin Allergy Severe JAUNDICE Verified 01/21/19 19:13 codeine Allergy Mild RASH Verified 01/21/19 19:13 nickel Allergy Mild RASH Verified 01/21/19 19:13 adhesive AdvReac Mild SKIN Verified 01/21/19 19:13 REDNESS Consultations 01/21/19 20:00 ED Decision to Admit Stat 01/22/19 15:01 Burn CD for patient Stat Ordered Studies 01/21/19 23:03 US ankle/brachial index comp Routine 01/22/19 01:55 MR foot RT wo/w con Routine Hospital Course (1) Peripheral arterial disease: (2) Toe gangrene: (3) Osteomyelitis of great toe of right foot: (4) Cellulitis of toe of right foot: -Afebrile, no leukocytosis -Blood cultures obtained: Pending -MRI right foot: There is pathologic marrow edema involving the tuft of the distal phalanx of the great toe. There is thickening of the overlying nailbed. The findings are suspicious for osteomyelitis. Clinical correlation in this regard is advocated, as no soft tissue abnormality was clinically reported. There are no findings to indicate osteomyelitis of the second toe as clinically queried there are no fluid collections to indicate an abscess. There is mild edema within the intrinsic muscles of the foot. IMPRESSION: 1. Pathologic T1 and T2 marrow edema involving the tuft of the distal phalanx the great toe with thickening of the overlying nailbed. The findings are suspicious for acute osteomyelitis. 2. No evidence of soft tissue abscess Ankle-brachial index: IMPRESSION: 1. Markedly reduced right ankle-brachial index of 0.21. 2. Mildly reduced left ankle brachial index of 0.88 Start vancomycin and Zosyn IV Start NSS with potassium Discussed with vascular surgery Dr. Fajardo-not injection mold technician for emergencies this weekend Recommend transfer to tertiary care center for further evaluation management, recommend to initiate heparin drip Heparin drip low-dose no bolus ordered Discussed with patient's family and patient at length and in detail, they are requesting transfer to [facility] Called [facility], discussed with hospitalist vascular surgeon, they can accept the patient for transfer, Vascular surgeon also agrees with initiating heparin drip Discussed case, plan of care, with patient and her family at the bedside, at length and in detail All comfortable, agreeable, understanding the plan of care Discussed with patient and her daughter, no history of bleeding in the past They are agreeable to start heparin drip (5) Diabetes mellitus, type II: Follows with paper spooler, recent A1c of 7.2 last week -Basal/bolus insulin per protocol -BSG AC HS (6) HTN (hypertension): BP elevated upon arrival at 206/87 -Did not take morning dose of ramipril, given to patient in the ED -Continue ramipril BID, HCTZ 12.5 mg daily - Improving (7) High cholesterol: Continue Crestor (8) Tobacco use disorder: History of 45 pack years, not interested in cessation -Nicotine patch ordered Disposition Transfer to [facility] for further evaluation management Total Time Total Time Spent Total Time Spent (In Minutes): 60 minutes Discharge Plan Discharge Items Patient Disposition: Transfer Acute Care Hospital Reason For Visit: TOE CELLULITIS Discharge Diagnosis: Severe peripheral arterial disease, cellulitis versus gangrene of the second toe, right; possible osteomyelitis right great toe Discharge Goals: Diagnostic testing and Therapeutic intervention Activity: As commented below Activity Comment: Bedrest with bathroom privileges Non-emergency contact: Primary Care Provider Call non-emergency contact if: you have any medication questions, your symptoms worsen and you have a fever Follow-up/Referrals: Jona Martinez MD [Primary Care Provider] - Diet: Carb Consistent or DM2 and Heart Healthy Addtl Provider Instructions: Please refer to accompanying discharge summary for further details Prescriptions: New nicotine [Nicoderm CQ] 21 mg/24 hr Patch 24 Hour 21 mg transdermal QAM 7 Days Qty: 7 RF: 0 Novolog Flexpen U-100 Insulin 100 unit/mL (3 mL) Insulin Pen 1 units SC ACHS 7 Days Qty: 0.07 RF: 0 Continued multivitamin Tablet 1 tab PO DAILY RF: 0 aspirin [Aspir-81] 81 mg Tablet,Delayed Release (Dr/Ec) 81 mg PO DAILY RF: 0 ramipril 10 mg Capsule 10 mg PO BID RF: 0 rosuvastatin [Crestor] 5 mg Tablet 5 mg PO MOTH RF: 0 omega 5-gsy-oip-fish oil [Fish Oil] 1,000 mg (120 mg-180 mg) Capsule 1 cap PO DAILY RF: 0 cholecalciferol (vitamin D3) [Vitamin D3] 2,000 unit Tablet 2,000 unit PO MOWEFR RF: 0 Discontinued Novolog U-100 Insulin aspart 100 unit/mL Solution 12 unit SUBCUT BID RF: 0 Novolog U-100 Insulin aspart 100 unit/mL Solution 16 unit SUBCUT QDD RF: 0 hydrochlorothiazide 25 mg Tablet 12.5 mg PO DAILY RF: 0 Basaglar KwikPen U-100 Insulin 100 unit/mL (3 mL) Insulin Pen 60 unit SUBCUT QDD RF: 0 Stand-Alone Forms: [facility] Discharge Orders: Discharge Order (Routine); Ordered 01/22/19 Ordered By: Radhames Rosales Admission Data Admit Date/Time: 01/21/19 22:59 Attending Provider: Radhames Rosales Admit Provider: George Gomez Primary Care Provider: Jona Martinez Other Providers: George Gomez Service: Medical
[2019-01-22 16:28] LABS: Prothrombin Time 10.5 Seconds (9.0-12.0)
[2019-01-22] MEDS ORDERED: INSULIN GLARGINE SOLOSTAR 100 UNITS/ML 3 ML PEN SQ SCH (16:30)
[2019-01-22] MEDS ORDERED: PIPERACILLIN/TAZOBACTAM 4.5 GM in DEXTROSE 5% 100 ML IV SCH (20:00)
[2019-01-22] MEDS ORDERED: INSULIN GLARGINE SOLOSTAR 100 UNITS/ML 3 ML PEN SQ ONE (21:00)
[2019-01-23] MEDS ORDERED: VANCOMYCIN HCL 1,750 MG in SODIUM CHLORIDE 0.9% 500 ML IV SCH
[2019-01-23] MEDS ORDERED: INSULIN ASPART 100 UNITS/ML 3 ML PEN SC SCH
[2019-01-24] MEDS ORDERED: ROSUVASTATIN CALCIUM 5 MG TAB PO SCH (09:00)
[2019-01-24] MEDS ORDERED: VANCOMYCIN TROUGH ONE (11:30)
== END 2019-01-22 18:10 | disposition short-term general hospital (02) | DRG 300 ==
LOC: ED 16:44 → 2N 22:59 → SUATTDRO 22:59 → 2N 23:59